=== PATIENT | female | born 1945 | race Two or more races ===

== ENCOUNTER 2023-02-04 10:14 | Emergency (ER) | payer OTHER ==
[~2023-02-04] VITALS: Ht 162.6 cm; Wt 65.8 kg
[2023-02-04] MEDS ORDERED: SINGULAIR10 MG PO (10:48)
[2023-02-04] MEDS ORDERED: INDAPAMIDE2.5 MG PO (10:49)
[2023-02-04] MEDS ORDERED: PREVACID30 M1 PO (10:49)
[2023-02-04] MEDS ORDERED: IRON325 MG (10:49)
[2023-02-04] MEDS ORDERED: FUROSEMIDE20 MG PO (10:50)
[2023-02-04] MEDS ORDERED: COZAAR100 MG PO (10:50)
[2023-02-04] MEDS ORDERED: MAGNESIUM COMP300 MG PO (10:50)
[2023-02-04] MEDS ORDERED: NAMENDA5 MG PO (10:51)
[2023-02-04] MEDS ORDERED: TOPROL XL25 M1 (10:51)
[2023-02-04 12:26] LABS: HEMOGLOBIN 9.6 g/dL (12.0-15.00); MEAN CELL VOLUME 91.3 fL (80.00-100.00); MEAN CORPUSCULAR HEMOGLOBIN 31.3 pg (27.00-32.0); MEAN CORPUSCULAR HGB CONC 34.3 g/dl (32.0-36.0); PLATELET COUNT 131 K/uL (150-450); RED BLOOD COUNT 3.07 M/uL (4.00-6.00); RED CELL DISTRIBUTION WIDTH 20.4 % (11.5-14.5)
[2023-02-04 12:28] LABS: PH,URINE 6.5 (5.0-8.0); URINE APPEARANCE Clear; URINE BILIRRUBIN Negative (NEGATIVE); URINE BLOOD Negative; URINE COLOR Dark Yellow; URINE GLUCOSE Negative (NEGATIVE); URINE LEUKOCYTE Moderate; URINE NITRATE Negative; URINE PROTEIN Negative (NEGATIVE)
[2023-02-04 12:29] LABS: URINE BACTERIA 138.5 uL (0.0-1933); URINE EPITHELIAL CELLS 10.1 uL (0.0-38.8); URINE WBC 126.8 uL (0.0-23.2)
[2023-02-04 12:54] LABS: CALCIUM 9.7 mg/dL (8.5-10.1); CREATININE SERUM 1.1 mg/dL (0.55-1.02); GFR 48.04; POTASSIUM 4.24 mEq/L (3.5-5.1)
== END 2023-02-04 13:45 | disposition home or self-care (01) ==
LOC: ER 10:14
PROVIDERS: General Practice
DX: N39.0 Urinary tract infection, site not specified (principal)